=== PATIENT | male | born 1975 | race Caucasian/White ===

== ENCOUNTER 2017-07-06 15:43 | Emergency (ER) | payer SELFPAY ==
[~2017-07-06] VITALS: Ht 182.9 cm; Wt 77.2 kg
[~2017-07-06 15:43] MED LIST: ADDE30TA PO; AMBI10TA PO; LORA2TAB PO
[2017-07-06 15:45] VITALS: BP 177/105; PULSE 90; RESP 20; TEMP 98.2; O2SAT 98
[2017-07-06 15:57] VITALS: BP 153/106; PULSE 87; RESP 16; O2SAT 100
[2017-07-06] MEDS ORDERED: ORPHENADRINE INJ 60 MG/2 ML AMP IM ONE (16:15)
[2017-07-06] MEDS ORDERED: KETOROLAC TROMETHAMINE 60 MG/2 ML (IM) VIAL IM ONE (16:15)
[2017-07-06] MEDS ORDERED: LORazepam 2 MG/ML VIAL IM ONE (16:15)
--- NOTE | 2017-07-06 16:29 | PD ---
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, HAS HAD MID BACK PAIN (FROM THORACIC TO LUMBAR REGION) AND FELT SOME TINGLING TO LEGS, THAT IS NOW RESOLVED, BUT BACK PAIN REMAINS AT 9/10, NONRAD, DESCRIBED SHARP, WORSE WITH MOVEMENT, NO APPARENT ALLEVIATING FACTORS PFSH Past Medical History Asthma: No Autoimmune Disease: No Blood Disorders: No Bipolar Disorder: Yes Anxiety: Yes Depression: Yes Heart Rhythm Problems: No Cancer: No Cardiac Catheterization: No Cardiovascular Problems: No High Cholesterol: No Chemotherapy: No Chest Pain: No Congestive Heart Failure: No COPD: No Diabetes: No Diminished Hearing: No Endocrine: No Gastrointestinal Disorders: Yes Headaches: Yes Hepatitis: No Hiatal Hernia: No Hypertension: No Immune Disorder: No Medical other: Yes (HX OF STOMACH ULCERS) Musculoskeletal: No Neurologic: No Psychiatric: No Reproductive: No Respiratory: No Migraines: Yes Pancreatitis: Yes Radiation Therapy: No Schizophrenia: Yes Seizures: Yes (STRESS INDUCED---PT. ) Sleep Apnea: No Thyroid Disease: No Ulcer: Yes (GASTRIC,INTESTINES) Influenza Vaccination: No PNEUMOCCOCAL Vaccine (Year): 2 Past Surgical History Coronary Artery Bypass Graft: No Pacemaker: No Other Surgery: Yes (TWO TOES REMOVED FROM EACH FOOT, JAW SURGERY) Social History Alcohol Use: No Tobacco Use: Yes (1/2 PPD) Substance Use: Yes (MMARIJUANA / FORMERLY IV DRUGS) Allergies-Medications (Allergen,Severity, Reaction): Coded Allergies: Tramadol (Unverified Adverse Reaction, Severe, N/V, 07/06/17) Reported Meds & Prescriptions Reported Meds & Active Scripts Active Naproxen EC (Naproxen) 375 Mg Tabdr 375 Mg PO BID Flexeril (Cyclobenzaprine HCl) 10 Mg Tab 10 Mg PO TID Codeine-Acetaminophen 30-300 mg Tab 1 Tab PO Q4H PRN Review of Systems Except as stated in HPI: all other systems reviewed are Neg Musculoskeletal: Positive: Myalgias, Pain Physical Exam Narrative GENERAL: SKIN: Warm and dry. HEAD: Atraumatic. Normocephalic. EYES: Pupils equal and round. No scleral icterus. No injection or drainage. ENT: No nasal bleeding or discharge. Mucous membranes pink and moist. NECK: Trachea midline. No JVD. CARDIOVASCULAR: Regular rate and rhythm. RESPIRATORY: No accessory muscle use. Clear to auscultation. Breath sounds equal bilaterally. GASTROINTESTINAL: Abdomen soft, non-tender, nondistended. Hepatic and splenic margins not palpable. MUSCULOSKELETAL: Extremities without clubbing, cyanosis, or edema. No obvious deformities. VISIBLE AND PALPABLE PARASPINAL SPASMS ALONG THORACOILIO LUMBARIS MUSCLE...NO MIDLINE TTP ON SPINOUS PROCESS PRESSURE NEUROLOGICAL: Awake and alert. No obvious cranial nerve deficits. Motor grossly within normal limits. Five out of 5 muscle strength in the arms and legs. Normal speech. PSYCHIATRIC: Appropriate mood and affect; insight and judgment normal. Data Data Last Documented VS Vital Signs Date Time Temp Pulse Resp B/P Pulse Ox O2 Delivery O2 Flow Rate FiO2 07/06/17 15:57 87 16 153/106 100 Room Air 07/06/17 15:45 98.2 Orders Orphenadrine Inj (Norflex Inj) (07/06/17 16:15) Ketorolac Inj (Toradol Inj) (07/06/17 16:15) Ct Thor Spine W/O Contrast (07/06/17 ) Ct Lumb Spine W/O Contrast (07/06/17 ) Lorazepam Inj (Ativan Inj) (07/06/17 16:15) Dexamethasone Inj (Decadron Inj) (07/06/17 18:00) [facility] Medical Decision Making Medical Screen Exam Complete: Yes Emergency Medical Condition: Yes Medical Record Reviewed: Yes Differential Diagnosis BACK SPASM V SPINAL CORD DISORDER V SPINE FX/DISLOCATION/RADICULOPATHY Narrative Course PATIENT AWAITING CT SPINE, IF NEG FOR FX/DISLOCATION/OR SPINAL CORD INJURY PATIENT MAY BE D/C /.....SIGNED OUT TO DR HOLGUIN PENDING CT AND REEVALUATION Diagnosis Primary Impression: ACUTE BACK SPASM Patient Instructions: General Instructions, Muscle Spasm (ED) Scripts Lizy GANN (Naproxen EC)375 Mg [id number] Mg PO BID #30 TAB Ref 0 Prov:Parish Peguero MD 07/06/17 Cyclobenzaprine (Flexeril)10 Mg Tab10 Mg PO TID #21 TAB Prov:Parish Peguero MD 07/06/17 Codeine-Acetaminophen 30-300 mg Tab1 Tab PO Q4H PRN (PAIN) #20 TAB Prov:Parish Peguero MD 07/06/17 Disposition: 01 DISCHARGE HOME Condition: Stable Parish Peguero MD Jul 06, 2017 16:29
[2017-07-06] MEDS ORDERED: CODE30TA2 PO (16:39)
[2017-07-06] MEDS ORDERED: CYCL1TAB29 PO (16:39)
[2017-07-06] MEDS ORDERED: NAPR-239 PO (16:40)
[2017-07-06] MEDS ORDERED: IOHEXOL 350 MG/ML 10 ML VIAL (for RAD DIAG) IV ONE (17:56)
[2017-07-06] MEDS ORDERED: DEXAMETHASONE SOD PHOS 4 MG/ML VIAL IM ONE (18:00)
--- NOTE | 2017-07-06 18:37 | RADRPT ---
EXAM DATE/TIME: 07/06/2017 17:30 [facility] COMPARISON: No previous studies available for comparison. INDICATIONS : Trauma; fall. RADIATION DOSE: 15.77 CTDIvol (mGy) MEDICAL HISTORY : Pancreatitis. SURGICAL HISTORY : None. ENCOUNTER: Initial ACUITY: 1 day PAIN SCALE: 8/10 LOCATION: Bilateral thoracic TECHNIQUE: Volumetric scanning of the thoracic spine was performed. Multiplanar reconstructions in the sagittal , coronal and oblique axial planes were performed. Using automated exposure control and adjustment o f the mA and/or kV according to patient size, radiation dose was kept as low as reasonably achievable to obtain optimal diagnostic quality images. DICOM format image data is available electronically f or review and comparison. FINDINGS: The vertebral bodies of the thoracic spine are in normal alignment without evidence of subluxation. Vertebral body height is maintained. No fractures are seen. T1-T2: Normal. T2-T3: The thecal sac has a normal diameter. No evidence of disc bulge or protrusion. T3-T4: The thecal sac has a normal diameter. No evidence of disc bulge or protrusion. T4-T5: The thecal sac has a normal diameter. No evidence of disc bulge or protrusion. T5-T6: The thecal sac has a normal diameter. No evidence of disc bulge or protrusion. T6-T7: The thecal sac has a normal diameter. No evidence of disc bulge or protrusion. T7-T8: The thecal sac has a normal diameter. No evidence of disc bulge or protrusion. T8-T9: Minimal right-sided shallow disc protrusion. Central canal diameter within normal limits. T9-T10: Minimal broad-based disc bulge. Central canal diameter within normal limits. Neural foraminal diamete rs within normal limits. T10-T11: Shallow left-sided disc protrusion. Central canal diameter within normal limits. Neural foraminal simon meters within normal limits. T11-T12: The thecal sac has a normal diameter. No evidence of disc bulge or protrusion. T12-L1: The thecal sac has a normal diameter. No evidence of disc bulge or protrusion. CONCLUSION: No evidence of fracture. Central canal diameter within normal limits. Sky Mondragon MD on July 06, 2017 at 18:31 Board Certified Radiologist. This report was verified electronically.
--- NOTE | 2017-07-06 18:42 | RADRPT ---
EXAM DATE/TIME: 07/06/2017 17:30 [facility] COMPARISON: CT LUMBAR SPINE W/O CONTRAST, March 29, 2014, 3:53. INDICATIONS : Trauma; fall. RADIATION DOSE: 15.77 CTDIvol (mGy) ; Combined studies - Thoracic Spine/Lumbar Spine MEDICAL HISTORY : Pancreatitis. SURGICAL HISTORY : None. ENCOUNTER: Initial ACUITY: 1 day PAIN SCALE: 8/10 LOCATION: Bilateral lumbar TECHNIQUE: Volumetric scanning of the lumbar spine was performed. Multiplanar reconstructions in the sagittal, coronal and oblique axial planes were performed. Using automated exposure control and adjustment of the mA and/or kV according to patient size, radiation dose was kept as low as reasonably achievable t o obtain optimal diagnostic quality images. DICOM format image data is available electronically for review and comparison. FINDINGS: VERTEBRAE: Large endplate osteophytes at L3-4 anteriorly. Moderate-sized endplate osteophytes anteriorly at L2-3 . These findings are unchanged. No evidence of acute fracture. ALIGNMENT: No evidence of subluxation. T12-L1: The thecal sac has a normal diameter. No evidence of disc bulge or protrusion. The neural foramina are patent bilaterally. L1-L2: Minimal broad-based disc bulge. No evidence of focal disc protrusion. Central canal normal diameter. Neural foraminal diameters within normal limits. L2-L3: Minimal broad-based disc bulge. No evidence of focal disc protrusion. Central canal normal diameter. Neural foraminal diameters within normal limits. L3-L4: Minimal broad-based disc bulge. No evidence of focal disc protrusion. Central canal normal diameter. Neural foraminal diameters within normal limits. L4-L5: Minimal broad-based disc bulge. No evidence of focal disc protrusion. Central canal normal diameter. Neural foraminal diameters within normal limits. L5-S1: Broad-based disc bulge with left-sided prominence. Mild left neural foraminal narrowing unchanged. Mi ld left lateral recess narrowing appears less prominent than on the comparison study. CONCLUSION: No evidence of fracture. Disc bulge left greater than right at L5-S1 again seen, slightly less promin ent than on the comparison study. Sky Mondragon MD on July 06, 2017 at 18:36 Board Certified Radiologist. This report was verified electronically.
--- NOTE | 2017-07-06 18:56 | PD ---
Physical Exam Narrative Patient was seen by ED physician and signed out to me. Data Data Last Documented VS Vital Signs Date Time Temp Pulse Resp B/P Pulse Ox O2 Delivery O2 Flow Rate FiO2 07/06/17 15:57 87 16 153/106 100 Room Air 07/06/17 15:45 98.2 Orders Orphenadrine Inj (Norflex Inj) (07/06/17 16:15) Ketorolac Inj (Toradol Inj) (07/06/17 16:15) Ct Thor Spine W/O Contrast (07/06/17 ) Ct Lumb Spine W/O Contrast (07/06/17 ) Lorazepam Inj (Ativan Inj) (07/06/17 16:15) Dexamethasone Inj (Decadron Inj) (07/06/17 18:00) [facility] Supervised Visit with JENIFER: No Interpretation(s) Last Impressions Thoracic Spine CT 07/06/17 0000 Signed Impressions: Service Date/Time: Thursday, July 06, 2017 17:30 - CONCLUSION: No evidence of fracture. Central canal diameter within normal limits. Sky Mondragon MD Lumbar Spine CT 07/06/17 0000 Signed Impressions: Service Date/Time: Thursday, July 06, 2017 17:30 - CONCLUSION: No evidence of fracture. Disc bulge left greater than right at L5-S1 again seen, slightly less prominent than on the comparison study. Sky Mondragon MD Narrative Course Patient was seen by ED physician and signed out to me. Diagnosis Primary Impression: ACUTE BACK SPASM Patient Instructions: General Instructions, Muscle Spasm (ED) Scripts Naproxen DR (Naproxen EC)375 Mg [id number] Mg PO BID #30 TAB Ref 0 Prov:Parish Peguero MD 07/06/17 Cyclobenzaprine (Flexeril)10 Mg Tab10 Mg PO TID #21 TAB Prov:Parish Peguero MD 07/06/17 Codeine-Acetaminophen 30-300 mg Tab1 Tab PO Q4H PRN (PAIN) #20 TAB Prov:Parish Peguero MD 07/06/17 Disposition: 01 DISCHARGE HOME Condition: Stable Suleman Neely MD Jul 06, 2017 18:56
== END 2017-07-06 19:11 | disposition home or self-care (01) ==
LOC: NEPD 15:43
DX: M62.830 Muscle spasm of back (principal); M54.6 Pain in thoracic spine; W01.0XXA Fall on same level from slipping, tripping and stumbling without subsequent striking against object, initial encounter
CPT/HCPCS: 72128; 72131; 96372; 99285; J1100; J1885; J2060; Q9967

== ENCOUNTER 2017-10-26 17:52 | Emergency (ER) | payer SELFPAY ==
[~2017-10-26 17:52] MED LIST changes: -ADDE30TA PO; -AMBI10TA PO; +CODE30TA2 PO; +CYCL10TA PO; -LORA2TAB PO; +NAPR375T4 PO
[2017-10-26 17:56] VITALS: BP 145/92; PULSE 94; RESP 20; TEMP 98.4; O2SAT 100
[2017-10-26] MEDS ORDERED: SODIUM CHLOR 0.9% 1000 ML INJ 1,000 ML IV ONE (17:59)
[2017-10-26] MEDS ORDERED: SODIUM CHLORIDE 0.9% FLUSH 10 ML FLUSH IVF PRN (18:00)
[2017-10-26 18:01] VITALS: O2SAT 98
[2017-10-26] MEDS ORDERED: ALPR.25 PO (18:01)
--- NOTE | 2017-10-26 18:05 | PD ---
HPI Chief Complaint: Seizure Time Seen by Provider: 17:55 Travel History International Travel<30 days: No Contact w/Intl Traveler<30days: No Traveled to known affect area: No History of Present Illness HPI The patient is a 42-year-old male who presents to the emergency department via EMS after a possible seizure. According to the police and EMS patient apparently was found in a car with heroin earlier today. The patient was placed under arrest, was sitting in the back of a manager copy car when he apparently had a seizure. According to the campus police officer the patient was fine , speaking well, and and then appeared to have a seizure. However, the campus police officer states there was no postictal state. The patient states she has a history of seizures which are secondary to panic attacks and are called "stress seizures ". The patient states he was previously taken medications for seizures , but currently takes no medications. He denies falling to the ground or strike his head during the seizure. He denies any tongue trauma or incontinence. He denies any current physical complaints. EMS states the patient's blood sugar was normal upon arrival. The patient currently has no complaints except for feeling fatigued. Symptoms are mild to moderate, possibly exacerbated by previous history of seizures and/or panic attacks, and self alleviating. PFSH Past Medical History Asthma: No Autoimmune Disease: No Blood Disorders: No Bipolar Disorder: Yes Anxiety: Yes Depression: Yes Heart Rhythm Problems: No Cancer: No Cardiac Catheterization: No Cardiovascular Problems: No High Cholesterol: No Chemotherapy: No Chest Pain: No Congestive Heart Failure: No COPD: No Diabetes: No Diminished Hearing: No Endocrine: No Gastrointestinal Disorders: Yes Headaches: Yes Hepatitis: No Hiatal Hernia: No Hypertension: No Immune Disorder: No Medical other: Yes (HX OF STOMACH ULCERS) Musculoskeletal: No Neurologic: No Psychiatric: No Reproductive: No Respiratory: No Migraines: Yes Pancreatitis: Yes Radiation Therapy: No Schizophrenia: Yes Seizures: Yes (STRESS INDUCED---PT. ) Sleep Apnea: No Thyroid Disease: No Ulcer: Yes (GASTRIC,INTESTINES) PNEUMOCCOCAL Vaccine (Year): 2 Past Surgical History Coronary Artery Bypass Graft: No Pacemaker: No Other Surgery: Yes (TWO TOES REMOVED FROM EACH FOOT, JAW SURGERY) Social History Alcohol Use: No Tobacco Use: Yes (1/2 PPD) Substance Use: Yes (MMARIJUANA / HEROIN) Allergies-Medications (Allergen,Severity, Reaction): Coded Allergies: tramadol (Unverified Adverse Reaction, Severe, N/V, 10/26/17) Reported Meds & Prescriptions Reported Meds & Active Scripts Active Reported Xanax (Alprazolam) 0.25 Mg Tab Unknown Dose PO Q4H PRN Review of Systems Except as stated in HPI: all other systems reviewed are Neg General / Constitutional: No: Fever HENT: No: Headaches, Neck Pain Cardiovascular: No: Chest Pain or Discomfort Respiratory: No: Shortness of Breath Gastrointestinal: No: Nausea, Vomiting, Abdominal Pain Neurologic: Positive: Seizures Psychiatric: Positive: Anxiety Physical Exam Narrative GENERAL: Awake, alert, pleasant 42-year-old male who appears his stated age and is in no acute respiratory distress. SKIN: Focused skin assessment warm/dry. HEAD: Atraumatic. Normocephalic. EYES: Pupils equal and round. Pupils are 2 mm bilateral and reactive. EOMs are intact. ENT: No nasal bleeding or discharge. Mucous membranes pink and moist. No visible tongue lacerations or contusions. NECK: Trachea midline. No JVD. CARDIOVASCULAR: Regular rate and rhythm. No murmur appreciated. RESPIRATORY: No accessory muscle use. Clear to auscultation. Breath sounds equal bilaterally. GASTROINTESTINAL: Abdomen soft, non-tender, nondistended. No rebound tenderness. MUSCULOSKELETAL: No obvious deformities. No clubbing. No cyanosis. No edema. NEUROLOGICAL: Awake and alert. No obvious cranial nerve deficits. Motor grossly within normal limits. Normal speech. Nonfocal. Oriented 4. Follows commands without difficulty. PSYCHIATRIC: Appropriate mood and affect; insight and judgment normal. Data Data Last Documented VS Vital Signs Date Time Temp Pulse Resp B/P (MAP) Pulse Ox O2 Delivery O2 Flow Rate FiO2 10/26/17 18:01 98 10/26/17 17:56 98.4 94 20 145/92 (109) Orders Orders Complete Blood Count With Diff (10/26/17 17:59) Alcohol (Ethanol) (10/26/17 17:59) Drug Screen, Random Urine (10/26/17 17:59) Blood Glucose (10/26/17 17:59) Ecg Monitoring (10/26/17 17:59) Iv Access Insert/Monitor (10/26/17 17:59) Oximetry (10/26/17 17:59) Comprehensive Metabolic Panel (10/26/17 17:59) Sodium Chlor 0.9% 1000 Ml Inj (Ns 1000 M (10/26/17 17:59) Sodium Chloride 0.9% Flush (Ns Flush) (10/26/17 18:00) Lactic Acid (10/26/17 17:59) Labs Laboratory Tests Test 10/26/17 18:10 White Blood Count 7.2 TH/MM3 Red Blood Count 4.97 MIL/MM3 Hemoglobin 13.6 GM/DL Hematocrit 43.3 % Mean Corpuscular Volume 87.1 FL Mean Corpuscular Hemoglobin 27.4 PG Mean Corpuscular Hemoglobin Concent 31.5 % Red Cell Distribution Width 12.6 % Platelet Count 262 TH/MM3 Mean Platelet Volume 8.5 FL Neutrophils (%) (Auto) 62.8 % Lymphocytes (%) (Auto) 23.6 % Monocytes (%) (Auto) 8.6 % Eosinophils (%) (Auto) 4.7 % Basophils (%) (Auto) 0.3 % Neutrophils # (Auto) 4.6 TH/MM3 Lymphocytes # (Auto) 1.7 TH/MM3 Monocytes # (Auto) 0.6 TH/MM3 Eosinophils # (Auto) 0.3 TH/MM3 Basophils # (Auto) 0.0 TH/MM3 CBC Comment DIFF FINAL Differential Comment Blood Urea Nitrogen 16 MG/DL Creatinine 0.76 MG/DL Random Glucose 98 MG/DL Total Protein 6.7 GM/DL Albumin 3.3 GM/DL Calcium Level 8.8 MG/DL Alkaline Phosphatase 111 U/L Aspartate Amino Transf (AST/SGOT) 122 U/L Alanine Aminotransferase (ALT/SGPT) 252 U/L Total Bilirubin 0.3 MG/DL Sodium Level 140 MEQ/L Potassium Level 4.0 MEQ/L Chloride Level 107 MEQ/L Carbon Dioxide Level 28.3 MEQ/L Anion Gap 5 MEQ/L Estimat Glomerular Filtration Rate 114 ML/MIN Lactic Acid Level 1.1 mmol/L Ethyl Alcohol Level LESS THAN 3 MG/DL MDM Medical Decision Making Medical Screen Exam Complete: Yes Emergency Medical Condition: Yes Medical Record Reviewed: Yes Interpretation(s) Laboratory Tests Test 10/26/17 18:10 White Blood Count 7.2 TH/MM3 Red Blood Count 4.97 MIL/MM3 Hemoglobin 13.6 GM/DL Hematocrit 43.3 % Mean Corpuscular Volume 87.1 FL Mean Corpuscular Hemoglobin 27.4 PG Mean Corpuscular Hemoglobin Concent 31.5 % Red Cell Distribution Width 12.6 % Platelet Count 262 TH/MM3 Mean Platelet Volume 8.5 FL Neutrophils (%) (Auto) 62.8 % Lymphocytes (%) (Auto) 23.6 % Monocytes (%) (Auto) 8.6 % Eosinophils (%) (Auto) 4.7 % Basophils (%) (Auto) 0.3 % Neutrophils # (Auto) 4.6 TH/MM3 Lymphocytes # (Auto) 1.7 TH/MM3 Monocytes # (Auto) 0.6 TH/MM3 Eosinophils # (Auto) 0.3 TH/MM3 Basophils # (Auto) 0.0 TH/MM3 CBC Comment DIFF FINAL Differential Comment Blood Urea Nitrogen 16 MG/DL Creatinine 0.76 MG/DL Random Glucose 98 MG/DL Total Protein 6.7 GM/DL Albumin 3.3 GM/DL Calcium Level 8.8 MG/DL Alkaline Phosphatase 111 U/L Aspartate Amino Transf (AST/SGOT) 122 U/L Alanine Aminotransferase (ALT/SGPT) 252 U/L Total Bilirubin 0.3 MG/DL Sodium Level 140 MEQ/L Potassium Level 4.0 MEQ/L Chloride Level 107 MEQ/L Carbon Dioxide Level 28.3 MEQ/L Anion Gap 5 MEQ/L Estimat Glomerular Filtration Rate 114 ML/MIN Lactic Acid Level 1.1 mmol/L Ethyl Alcohol Level LESS THAN 3 MG/DL Differential Diagnosis Differential diagnosis includes seizure, pseudoseizure, noncompliance, hyponatremia, drug ingestion, dehydration, hypoglycemia. Narrative Course IV was established, labs are drawn and sent, and the patient was placed on cardiac telemetry monitoring and continuous pulse oximetry monitoring. The patient was administered 1 L of IV fluids. The patient's lactic acid was 1.1. White count is unremarkable. AST and ALT were elevated with a ALT and the 200s and AST in the 100s. The patient states that his seizures are related to anxiety and panic attacks, I reviewed the EMR, I cannot see any antiseizure medications. He is stable for outpatient follow-up with his primary physician. Diagnosis Primary Impression: Seizure Patient Instructions: General Instructions Additional Instructions: Follow-up with your primary physician. Follow-up with neurology if symptoms persist. Return if symptoms worsen or progress. Med/Other Pt SpecificInfo: No Change to Meds Disposition: 01 DISCHARGE HOME (discharge in police custody) Condition: Stable Ran Carson MD Oct 26, 2017 18:05
[2017-10-26 18:17] LABS: AUTOMATED NEUTROPHIL # 4.6 TH/MM3 (1.8-7.7); BASOPHIL % 0.3 % (0.0-2.0); EOSINOPHIL # 0.3 TH/MM3 (0-0.4); EOSINOPHIL % 4.7 % (0.0-4.0); HEMATOCRIT 43.3 % (39.0-51.0); HEMO FLAGS DIFF FINAL; LYMPH % 23.6 % (9.0-44.0); LYMPHOCYTE # 1.7 TH/MM3 (1.0-4.8); MEAN CELL VOLUME 87.1 FL (80.0-100.0); MEAN CORPUSCULAR HEMOGLOBIN 27.4 PG (27.0-34.0); MEAN CORPUSCULAR HGB CONC 31.5 % (32.0-36.0); MONO % 8.6 % (0.0-8.0); NEUT % 62.8 % (16.0-70.0); PLATELET COUNT 262 TH/MM3 (150-450); RED BLOOD COUNT 4.97 MIL/MM3 (4.50-5.90); RED CELL DISTRIBUTION WIDTH 12.6 % (11.6-17.2); WHITE BLOOD COUNT 7.2 TH/MM3 (4.0-11.0)
[2017-10-26 18:24] LABS: CHLORIDE 107 MEQ/L (98-107); SODIUM (NA) 140 MEQ/L (136-145)
[2017-10-26 18:28] LABS: ANION GAP 5 MEQ/L (5-15); BICARBONATE 28.3 MEQ/L (21.0-32.0); BLOOD UREA NITROGEN 16 MG/DL (7-18)
[2017-10-26 18:31] LABS: ALT (GPT) 252 U/L (12-78); AST (GOT) 122 U/L (15-37); GLOMERULAR FILTRATION RATE 114 ML/MIN (>89)
[2017-10-26 18:32] LABS: TOTAL BILIRUBIN ADULT 0.3 MG/DL (0.2-1.0)
[2017-10-26 18:33] LABS: ALKALINE PHOSPHATASE 111 U/L (45-117)
[2017-10-26 18:40] LABS: ALCOHOL LESS THAN 3 MG/DL (0-5)
== END 2017-10-26 19:30 | disposition home or self-care (01) ==
LOC: PHED 17:52
DX: R56.9 Unspecified convulsions (principal); F20.9 Schizophrenia, unspecified; F31.9 Bipolar disorder, unspecified; F17.210 Nicotine dependence, cigarettes, uncomplicated; Z79.899 Other long term (current) drug therapy
CPT/HCPCS: 80053; 80307; 83605; 85025; 96360; 99284; J7030

== ENCOUNTER 2017-12-19 23:49 | Emergency (ER) | payer SELFPAY ==
[~2017-12-19] VITALS: Ht 182.9 cm; Wt 75.0 kg
[~2017-12-19 23:49] MED LIST changes: +ALPR.25 PO; -CODE30TA2 PO; -CYCL10TA PO; -NAPR375T4 PO
[2017-12-20 00:05] VITALS: BP 128/89; PULSE 127; RESP 19; TEMP 98.9; O2SAT 98
[2017-12-20] MEDS ORDERED: TRAZ1TAB14 PO (00:11)
[2017-12-20] MEDS ORDERED: DILA100C PO (00:11)
[2017-12-20] MEDS ORDERED: ADDE30TA PO (00:11)
--- NOTE | 2017-12-20 00:45 | PD ---
HPI Chief Complaint: OD/ Ingestion Time Seen by Provider: 00:43 Travel History International Travel<30 days: No Contact w/Intl Traveler<30days: No Traveled to known affect area: No History of Present Illness HPI 42-year-old male complains of altered mental status. He arrives by EMS after he was found unresponsive in his car. EMS reports IV drug abuse paraphernalia in the passenger seat. The patient was unresponsive. He received Narcan and then awoke. In the ER he complains of a history of epilepsy and thinks may have had a seizure. He reports compliance with Dilantin. Severity moderate. Timing is resolved. PFSH Past Medical History Asthma: No Autoimmune Disease: No Blood Disorders: No Bipolar Disorder: Yes Anxiety: Yes Depression: Yes Heart Rhythm Problems: No Cancer: No Cardiac Catheterization: No Cardiovascular Problems: No High Cholesterol: No Chemotherapy: No Chest Pain: No Congestive Heart Failure: No COPD: No Diabetes: No Diminished Hearing: No Endocrine: No Gastrointestinal Disorders: Yes Headaches: Yes Hepatitis: No Hiatal Hernia: No Hypertension: No Immune Disorder: No Medical other: Yes (HX OF STOMACH ULCERS) Musculoskeletal: No Neurologic: No Psychiatric: No Reproductive: No Respiratory: No Migraines: Yes Pancreatitis: Yes Radiation Therapy: No Schizophrenia: Yes Seizures: Yes (STRESS INDUCED---PT. ) Sleep Apnea: No Thyroid Disease: No Ulcer: Yes (GASTRIC,INTESTINES) Tetanus Vaccination: > 5 Years Influenza Vaccination: No PNEUMOCCOCAL Vaccine (Year): 2 Past Surgical History Coronary Artery Bypass Graft: No Pacemaker: No Other Surgery: Yes (TWO TOES REMOVED FROM EACH FOOT, JAW SURGERY) Social History Alcohol Use: No Tobacco Use: Yes (1/2 PPD) Substance Use: Yes (MMARIJUANA / HEROIN) Allergies-Medications (Allergen,Severity, Reaction): Coded Allergies: tramadol (Unverified Adverse Reaction, Severe, N/V, 10/26/17) Reported Meds & Prescriptions Reported Meds & Active Scripts Active Reported Trazodone (Trazodone HCl) 150 Mg Tablet 150 Mg PO HS Adderall (Amphetamine-Dextroamphetamine) 30 Mg Tab 30 Mg PO TID Avoid late evening doses. Space doses at least 4 to 6 hours if more than once/day dosing. Dilantin (Phenytoin Extended) 100 Mg Cap 300 Mg PO TID Xanax (Alprazolam) 0.25 Mg Tab Unknown Dose PO Q4H PRN Review of Systems Except as stated in HPI: all other systems reviewed are Neg Physical Exam Narrative GENERAL: 42-year-old male sitting on his bed in no acute distress SKIN: Warm and dry. HEAD: Atraumatic. Normocephalic. EYES: Pupils equal and round. No scleral icterus. No injection or drainage. ENT: No nasal bleeding or discharge. Mucous membranes pink and moist. NECK: Trachea midline. No JVD. CARDIOVASCULAR: Regular rate and rhythm. RESPIRATORY: No accessory muscle use. Clear to auscultation. Breath sounds equal bilaterally. GASTROINTESTINAL: Abdomen soft, non-tender, nondistended. Hepatic and splenic margins not palpable. MUSCULOSKELETAL: Extremities without clubbing, cyanosis, or edema. No obvious deformities. NEUROLOGICAL: Awake and alert. No obvious cranial nerve deficits. Motor grossly within normal limits. Five out of 5 muscle strength in the arms and legs. Normal speech. PSYCHIATRIC: Appropriate mood and affect; insight and judgment normal. Data Data Last Documented VS Vital Signs Date Time Temp Pulse Resp B/P (MAP) Pulse Ox O2 Delivery O2 Flow Rate FiO2 12/20/17 00:05 98.9 127 19 128/89 (102) 98 MDM Medical Decision Making Medical Screen Exam Complete: Yes Emergency Medical Condition: Yes Medical Record Reviewed: Yes Differential Diagnosis Seizure, opioid overdose, medication noncompliance Narrative Course The altered mental status has resolved and the patient's mentation is normal here. Patient has remained AO 3 here. GCS 15 throughout his ED stay. It's unclear if he had a seizure or if he had a overdose from opioids. He has capacity prevent decision-making and elects to leave the ER. Diagnosis Primary Impression: Altered mental status Wm George MD Dec 20, 2017 00:45
== END 2017-12-20 01:32 | disposition home or self-care (01) ==
LOC: NEPC 23:49
DX: R41.82 Altered mental status, unspecified (principal); F31.9 Bipolar disorder, unspecified; F41.9 Anxiety disorder, unspecified; G40.909 Epilepsy, unspecified, not intractable, without status epilepticus; F20.9 Schizophrenia, unspecified; F17.200 Nicotine dependence, unspecified, uncomplicated; Z87.19 Personal history of other diseases of the digestive system; Z79.899 Other long term (current) drug therapy; Z88.5 Allergy status to narcotic agent
CPT/HCPCS: 99283